=== PATIENT | male | born 1945 | race Caucasian/White ===

== ENCOUNTER 2016-12-04 09:55 | Inpatient (IN) | payer BC, MEDICARE ==
[~2016-12-04] VITALS: Ht 172.7 cm; Wt 128.3 kg
[~2016-12-04 09:55] MED LIST: NUCY150T PO; PRAV20TA2 PO
[2016-12-07] MEDS ORDERED: MULT1TAB84 PO (14:45)
[2016-12-10] MEDS ORDERED: BUPIVACAINE LIPOSOME PF 1.3% 20 ML VIAL ONE (09:35)
[2016-12-10] MEDS ORDERED: LIDOCAINE HCL 1% 30 ML VIAL NERV BLOCK ONE (09:35)
[2016-12-10] MEDS ORDERED: VANCOMYCIN HCL 1000 MG VIAL ONE (11:01)
[2016-12-10] MEDS ORDERED: SODIUM CHLOR 0.9% 250 ML INJ 250 ML ONE (11:04)
[2016-12-10 11:09] VITALS: BP 152/86; PULSE 76; RESP 19; TEMP 98.6; O2SAT 99
[2016-12-10] MEDS ORDERED: LACTATED RINGER'S 1000 ML INJ 1,000 ML ONE (11:23)
[2016-12-10] MEDS ORDERED: LACTATED RINGER'S 1000 ML INJ 1,000 ML IV ONE (12:00)
[2016-12-10] MEDS ORDERED: ONDANSETRON HCL 4 MG/2 ML VIAL IV PUSH ONE (12:00)
[2016-12-10] MEDS ORDERED: PROPOFOL 200 MG/20 ML AMP IV ONE (12:00)
[2016-12-10] MEDS ORDERED: GENTAMICIN SULFATE 80 MG/2 ML VIAL ONE (12:05)
[2016-12-10] MEDS ORDERED: fentaNYL CITRATE 250 MCG/5 ML AMP ONE (12:18)
[2016-12-10] MEDS ORDERED: MIDAZOLAM HCL 2 MG/2 ML VIAL ONE (12:18)
[2016-12-10] MEDS ORDERED: ACETAMINOPHEN 1000 MG/100 ML VIAL IV ONE (12:18)
[2016-12-10] MEDS ORDERED: SUGAMMADEX SODIUM 200 MG/2 ML VIAL IV PUSH ONE ×2 (12:19)
[2016-12-10] MEDS ORDERED: ceFAZolin 2 GM PREMIX 50 ML ONE (12:45)
[2016-12-10] MEDS ORDERED: ROPIVACAINE PERI-ARTICULAR INJECTION. P-ARTICULR SCH ×5 (13:00)
[2016-12-10] MEDS ORDERED: ZOLPIDEM TARTRATE 5 MG TAB PO PRN (15:45)
[2016-12-10] MEDS ORDERED: ACETAMINOPHEN/HYDROcodone 325 MG/10 MG TAB PO PRN (15:45)
[2016-12-10] MEDS ORDERED: ALUMINUM/MAGNESIUM/SIMETH 30 ML CUP PO PRN (15:45)
[2016-12-10] MEDS ORDERED: ONDANSETRON HCL 4 MG/2 ML VIAL IVP PRN (15:45)
[2016-12-10] MEDS ORDERED: Post-op Orders (for Pharmacy) MISC XX ONE (15:45)
[2016-12-10] MEDS ORDERED: SODIUM CHLORIDE 0.9% FLUSH 5 ML FLUSH IVF PRN (15:45)
[2016-12-10] MEDS ORDERED: *morphine SULFATE 8 MG/ML PERIprocedure ONLY ONE ×3 (15:48→16:01)
[2016-12-10] MEDS ORDERED: CPMMACHINE (15:51)
[2016-12-10] MEDS ORDERED: BEDSIDE COMMODE1 MI1 (15:51)
[2016-12-10] MEDS ORDERED: WALKER WHEELS/F1 MIS (15:51)
--- NOTE | 2016-12-10 15:53 | HHI.FF ---
Face to Face Verification Diagnosis: (1) Osteoarthritis of left knee Physical Therapy Gait training, Transfer training, bed to chair Knee: Total knee, Protocol: Left, Full weight bearing Canvas Knee Splint: Other (while sleeping at night ) Right LE Weight Bearing: WB as tolerated Left LE Weight Bearing: WB as tolerated Nursing RN: 3 days/week x 2 weeks Nursing: Dressing changes (clean incision with alcohol and apply dry sterile dressing ) Additional Instructions Pt/INR q Saturday and , call results to Lupe [phone] I have seen patient Juan Astudillo on 12/10/16. My clinical findings support the need for the requested home health care services because: High risk of falls I certify that my clinical findings support that this patient is homebound because: Post-op weakness Unsteady gait/balance Josue Cho MD Dec 10, 2016 15:53
[2016-12-10] MEDS ORDERED: *MEPERIDINE 25 MG INJ VIAL PERIprocedural Use ONLY ONE (16:06)
[2016-12-10] MEDS ORDERED: *RESP: ALBUTEROL 2.5 MG/3 ML NEB (PRN) PERIprocedural Use ONLY NEB ONE (16:13)
[2016-12-10] MEDS: LACTATED RINGER'S 1000 ML INJ 1,000 ML IV SCH (17:00)
--- NOTE | 2016-12-10 17:20 | RADRPT ---
EXAM DATE/TIME: 12/10/2016 16:55 [facility] COMPARISON: No previous studies available for comparison. INDICATIONS : Evaluate left knee arthroplasty MEDICAL HISTORY : None. SURGICAL HISTORY : Hardware placement left tibia ENCOUNTER: Initial ACUITY: 1 day PAIN SCORE: 8/10 LOCATION: Left Knee FINDINGS: The patient is post left knee arthroplasty. Orthopedic hardware appears in good position. Note is made of an old plate across a healed tibial fracture. CONCLUSION: 1. Left knee arthroplasty in good position. 2. Old plate across a healed tibial fracture. Nate Miles MD on December 10, 2016 at 17:17 Board Certified Radiologist. This report was verified electronically.
[2016-12-10 17:50] VITALS: BP 144/79; PULSE 92; RESP 18; TEMP 96.1; O2SAT 95
[2016-12-10] MEDS: MORPHINE SULFATE 8 MG/ML INJ IM PRN ×2 (18:13→21:22)
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
[2016-12-10 20:05] VITALS: BP 134/75; PULSE 93; RESP 17; TEMP 97; O2SAT 96
[2016-12-10] MEDS ORDERED: TAPENTADOL PO SCH (21:00)
[2016-12-10] MEDS: SODIUM CHLORIDE 0.9% FLUSH 5 ML FLUSH IVF SCH (21:00)
[2016-12-10] MEDS ORDERED: [UNRECOGNIZED DRUG - OTHER] PO SCH (21:00)
[2016-12-10] MEDS: PRAVASTATIN SOD 20 MG TAB PO SCH (21:24)
[2016-12-10] MEDS: ACETAMINOPHEN/HYDROcodone 325 MG/10 MG TAB PO PRN (23:58)
[2016-12-11] VITALS (13 sets, daily range): BP systolic 125–189; BP diastolic 70–88; PULSE 95–112; RESP 2–30; TEMP 99.3–103; O2SAT 91–98
[2016-12-11] MEDS: MORPHINE SULFATE 8 MG/ML INJ IM PRN ×5 (00:39→13:37)
[2016-12-11] MEDS: LACTATED RINGER'S 1000 ML INJ 1,000 ML IV SCH (04:30)
--- NOTE | 2016-12-11 07:15 | PD.ORT.PN ---
Subjective Subjective Remarks POD#1 L TKR Explained to patient and operative findings;answered multiple questions No sob,no chest pain Objective Vitals Vital Signs Date Time Temp Pulse Resp B/P Pulse Ox O2 Delivery O2 Flow Rate FiO2 12/11/16 03:27 100.0 108 20 129/82 94 12/11/16 00:05 100.1 98 18 131/71 95 12/10/16 20:05 97.0 93 17 134/75 96 12/10/16 17:50 96.1 92 18 144/79 95 12/10/16 17:00 78 18 134/73 94 Nasal Cannula 3 12/10/16 16:45 80 18 122/81 96 Nasal Cannula 4 12/10/16 16:30 86 18 122/75 96 Nasal Cannula 4 12/10/16 16:15 80 18 158/90 99 Nasal Cannula 4 12/10/16 16:00 92 18 146/86 94 Nasal Cannula 4 12/10/16 15:45 90 18 160/99 95 Nasal Cannula 4 12/10/16 15:40 97.7 100 18 159/100 93 Nasal Cannula 4 12/10/16 11:09 98.6 76 19 152/86 99 I/O 12/10/16 12/10/16 12/10/16 12/11/16 12/11/16 12/11/16 07:00 15:00 23:00 07:00 15:00 23:00 Intake Total 670 ml 240 ml Output Total 800 ml 600 ml Balance -130 ml -360 ml Intake Oral 470 ml 240 ml IV Total 50 ml Autotransfusion 150 ml Output Urine Total 500 ml 600 ml Drainage Total 150 ml Autotransfusion 150 ml # Bowel Movements 0 0 Imaging Last 24 hours Impressions Knee X-Ray 12/10/16 1542 Signed Impressions: Service Date/Time: Saturday, December 10, 2016 16:55 - CONCLUSION: 1. Left knee arthroplasty in good position. 2. Old plate across a healed tibial fracture. Nate Miles MD Objective Remarks N/V intact Neg bharti's;no calf tenderness Assessment & Plan Assessment and Plan Ortho stable Coumadin ,TEDS,Sequential hoses for DVT prophylaxsis PT,Rehab D/C home tomorrow;[facility] PT,RN Josue Cho MD Dec 11, 2016 07:15
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
[2016-12-11 08:37] LABS: HEMATOCRIT 38.1 % (39.0-51.0); REVIEW FLAG FINAL
[2016-12-11 08:45] LABS: INTERNATIONAL NORMALIZED RATIO 1.1 RATIO; PROTHROMBIN TIME - PATIENT 11.7 SEC (9.8-11.6)
[2016-12-11] MEDS: [UNRECOGNIZED DRUG - OTHER] PO SCH ×2 (09:00→21:00)
[2016-12-11] MEDS: SODIUM CHLORIDE 0.9% FLUSH 5 ML FLUSH IVF SCH ×2 (09:00→21:00)
[2016-12-11] MEDS: TAPENTADOL PO SCH ×2 (09:00→21:00)
--- NOTE | 2016-12-11 10:21 | EKG ---
Date Performed: 12/10/2016 Time Performed: 12:40:04 PTAGE: 71 years EKG: Sinus rhythm WITH FIRST DEGREE AV BLOCK RIGHT BUNDLE BRANCH BLOCK ANTERIOR MYOCARDIAL INFARCTION , OF INDETERMINA TE AGE INFERIOR MYOCARDIAL INFARCTION , OF INDETERMINATE AGE Baseline artifact ABNORMAL ECG NO PREVIOUS TRACING DOCTOR: July Egan Interpretating Date/Time 12/11/2016 10:20:41
[2016-12-11] MEDS: ACETAMINOPHEN/HYDROcodone 325 MG/10 MG TAB PO PRN (11:42)
[2016-12-11] MEDS ORDERED: NALOXONE HCL 0.4 MG/ML AMP ONE (14:45)
[2016-12-11] MEDS ORDERED: MORPHINE SULFATE 8 MG/ML INJ IM PRN (15:47)
[2016-12-11] MEDS ORDERED: WARFARIN SOD 7.5 MG TAB PO SCH (16:00)
[2016-12-11] MEDS ORDERED: WARFARIN SOD 5 MG TAB PO SCH (16:00)
--- NOTE | 2016-12-11 17:02 | RADRPT ---
EXAM DATE/TIME: 12/11/2016 16:46 [facility] COMPARISON: No previous studies available for comparison. INDICATIONS : Short of breath. MEDICAL HISTORY : None. SURGICAL HISTORY : None. ENCOUNTER: Initial ACUITY: 1 day PAIN SCORE: 0/10 LOCATION: Bilateral chest FINDINGS: The film is somewhat underpenetrated and rotated. There does appear to be perihilar parenchymal opaci ty and mild prominence of the visualized right hilum however this may be largely projectional. Cardia c size appears grossly normal for projection. No significant effusion is suspected. CONCLUSION: Limited film with no comparisons. Good quality PA and lateral views would be suggested for followup. See above. Farhad Natarajan MD on December 11, 2016 at 16:57 Board Certified Radiologist. This report was verified electronically.
--- NOTE | 2016-12-11 17:27 | HHI.PR ---
Subjective Remarks Patient was evaluated earlier today. At the time of my evaluation, a halicat was called because patient had sudden vomited while he was asleep and there was concern for aspiration. When I went to evaluate the patient, he was alert and oriented. He states that he was sleeping and woke up with vomitus around him. Nurse and at bedside state the same. states he doesn't usually vomit , and she is only significant having vomited 3 times since they have been together. Patient tells me that he feels scared about what happened. He denies any shortness of breath, any chest pain. He denies feeling nauseous prior to the episode. He again emphasizes he was asleep. Objective Vitals Vital Signs Date Time Temp Pulse Resp B/P Pulse Ox O2 Delivery O2 Flow Rate FiO2 12/11/16 16:00 101.3 102 30 189/88 92 12/11/16 12:44 96 Nasal Cannula 3.00 12/11/16 12:00 99.3 99 18 125/71 91 12/11/16 08:45 Nasal Cannula 3.00 12/11/16 08:00 99.8 95 18 126/76 92 12/11/16 03:27 100.0 108 20 129/82 94 12/11/16 00:05 100.1 98 18 131/71 95 12/10/16 20:05 97.0 93 17 134/75 96 12/10/16 17:50 96.1 92 18 144/79 95 I/O 12/10/16 12/10/16 12/10/16 12/11/16 12/11/16 12/11/16 07:00 15:00 23:00 07:00 15:00 23:00 Intake Total 670 ml 240 ml Output Total 800 ml 630 ml Balance -130 ml -390 ml Intake Oral 470 ml 240 ml IV Total 50 ml Autotransfusion 150 ml Output Urine Total 500 ml 600 ml Drainage Total 150 ml 30 ml Autotransfusion 150 ml # Bowel Movements 0 0 Result Diagram: 12/11/16 0800 Imaging Last Impressions Chest X-Ray 12/11/16 0000 Signed Impressions: Service Date/Time: Sunday, December 11, 2016 16:46 - CONCLUSION: Limited film with no comparisons. Good quality PA and lateral views would be suggested for followup. See above. Farhad Natarajan MD Knee X-Ray 12/10/16 4942 Signed Impressions: Service Date/Time: Saturday, December 10, 2016 16:55 - CONCLUSION: 1. Left knee arthroplasty in good position. 2. Old plate across a healed tibial fracture. Nate Miles MD Objective Remarks GENERAL: This is an obese, well-developed patient, in no apparent distress. SKIN: No rashes, ecchymoses or lesions. Cool and dry. surgical dressing LLE dry in intact CARDIOVASCULAR: Regular rate and rhythm without murmurs, gallops, or rubs. RESPIRATORY: Clear to auscultation. Breath sounds equal bilaterally. No wheezes , rales, or rhonchi. GASTROINTESTINAL: Abdomen soft, non-tender, nondistended. normoactive bowel sounds all four quadrants MUSCULOSKELETAL: LLE post op dressing dry and intact NEUROLOGICAL: Awake and alert. no focal deficits. NC in place. Looks a bit afraid but answers appropriately A/P Problem List: (1) Osteoarthritis of left knee ICD Code: M17.12 Status: Acute (2) Hyperlipemia ICD Code: E78.5 Status: Chronic Assessment and Plan This is a 71 year old male patient with past medical history which includes hyperlipidemia and osteoarthritis left knee. Patient is status post left total knee arthroplasty today 12/10/[address] Cho. Patient is currently in hospital bed recovering postoperatively. Halicat was called because pt vomited while asleep and there was concerns for aspiration. STAT chest x-ray was ordered. Pt on NC. satting mid 90's during my exam. Ortho was notified and has decreased pain meds which I agree with. OA L knee- s/p Left total knee arthroplasty 12/10/[address] Cho Pain management, anticoagulation, Abx and rehab per surgery hyperlipidemia- continue pravastatin f/u at 5:24pm. I was paged by RN that pt is still somnolent and sats are lower but pulse ox is being used on toes. I will order an ABG as well. Elevate head of bed and reflux precaution. continuous oxygen for now and titrate down. Pt has a BMI of 43 and could be a CO2 retainer. Based on ABG results, may need use of CPAP. Tmax this afternoon was 101. this may just be post op fever but will closely monitor especially pt is a high risk of aspiration pneumonitis. Discharge Planning per primary team Katarina Sy MD Dec 11, 2016 17:27
[2016-12-11 17:41] LABS: BLOOD GAS BASE EXCESS 4.5 mmol/L (-2-2); BLOOD GAS CARBOXYHEMOGLOBIN 2.2 % (0-4); BLOOD GAS HCO3 31 mmol/L (22-26); BLOOD GAS METHEMOGLOBIN 0.9 % (0-2); BLOOD GAS O2 HGB SATURATION 89 % (90-100); BLOOD GAS OXYGEN CONTENT 16.4 Vol % (12.0-20.0); BLOOD GAS PCO2 66 mmHg (38-42); BLOOD GAS PO2 69 mmHg (61-120); BLOOD GAS TOTAL HGB 13.2 G/DL (12.0-16.0); CRITICAL VALUE YES; TEMP CORR TO 98.6
[2016-12-11 17:42] LABS: DRAW SITE LT RADIAL; LITER FLOW 5 L/M; NUMBER OF ARTERIAL PUNCTURES 2; OXYGEN DEVICE SIMPLE MASK; STAT YES; ULNAR PULSE PRESENT
[2016-12-11] MEDS ORDERED: ACETAMINOPHEN 325 MG TAB PO PRN (17:45)
--- NOTE | 2016-12-11 18:11 | HHI.PR ---
Addendum to Inpatient Note Additional Information I went to evaluate the patient as another Halicat was called pt's on 5L simple mask, answers questions but cannot states who the president is. Per family is a bit confused. Pt is wheezing on my exam therefore I have ordered duonebs scheduled and prn. I also ordered continuous oxygen. pt hasn't vomited since last episode. ABG resulted and showed pH7.28, pCO2 66, HCO3 30.7 Pt is obese and could have some sleep apnea as well. Will order BiPAP at this time I have discussed the case w Dr. Erazo. an official consult will be placed to him. he has agreed to monitor pt overnight. A bed in [facility] was available therefore pt will be transferred there. If he worsens, he will transfer pt to ICU Katarina Sy MD Dec 11, 2016 18:11
[2016-12-11] MEDS: RESP: ALBUTEROL 2.5 MG/IPRATROPIUM 0.5 MG NEB (SCH) NEB (19:32)
[2016-12-11] MEDS: PIPERACIL-TAZO 4.5 GM PREMIX 100 ML IV SCH (20:00)
[2016-12-11] MEDS: RESP: ALBUTEROL 2.5 MG/IPRATROPIUM 0.5 MG NEB (PRN) NEB (20:17)
[2016-12-11 20:46] LABS: BLOOD GAS BASE EXCESS 3.9 mmol/L (-2-2); BLOOD GAS CARBOXYHEMOGLOBIN 1.9 % (0-4); BLOOD GAS HCO3 30 mmol/L (22-26); BLOOD GAS O2 HGB SATURATION 95 % (90-100); BLOOD GAS OXYGEN CONTENT 16.8 Vol % (12.0-20.0); BLOOD GAS PCO2 62 mmHg (38-42); BLOOD GAS PO2 115 mmHg (61-120); BLOOD GAS TOTAL HGB 12.5 G/DL (12.0-16.0); TEMP CORR TO 98.6
[2016-12-11 20:47] LABS: CRITICAL VALUE YES; DRAW SITE RT RADIAL; FIO2 100 %; LITER FLOW 15 L/M; NUMBER OF ARTERIAL PUNCTURES 1; OXYGEN DEVICE NRB; STAT YES; ULNAR PULSE PRESENT
[2016-12-11] MEDS: PRAVASTATIN SOD 20 MG TAB PO SCH (21:00)
[2016-12-11 22:11] LABS: BLOOD GAS BASE EXCESS 4.6 mmol/L (-2-2); BLOOD GAS CARBOXYHEMOGLOBIN 1.7 % (0-4); BLOOD GAS HCO3 31 mmol/L (22-26); BLOOD GAS O2 HGB SATURATION 94 % (90-100); BLOOD GAS OXYGEN CONTENT 16.4 Vol % (12.0-20.0); BLOOD GAS PCO2 65 mmHg (38-42); BLOOD GAS PO2 90 mmHg (61-120); BLOOD GAS TOTAL HGB 12.4 G/DL (12.0-16.0); TEMP CORR TO 98.6
[2016-12-11 22:12] LABS: CRITICAL VALUE YES; OXYGEN DEVICE BiPAP
[2016-12-11 22:13] LABS: DRAW SITE RT RADIAL; FIO2 80 %; NUMBER OF ARTERIAL PUNCTURES 2; STAT NO; ULNAR PULSE PRESENT
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
[2016-12-12] VITALS (14 sets, daily range): BP systolic 106–162; BP diastolic 56–72; PULSE 98–110; RESP 24–28; TEMP 97.6–99.9; O2SAT 92–100
[2016-12-12] MEDS: PIPERACIL-TAZO 4.5 GM PREMIX 100 ML IV SCH ×4 (02:00→20:20)
[2016-12-12] MEDS: RESP: ALBUTEROL 2.5 MG/IPRATROPIUM 0.5 MG NEB (PRN) NEB (03:50)
[2016-12-12 04:38] LABS: AUTOMATED NEUTROPHIL # 9.7 TH/MM3 (1.8-7.7); BASOPHIL % 0.2 % (0.0-2.0); EOSINOPHIL % 0.1 % (0.0-4.0); HEMATOCRIT 34.9 % (39.0-51.0); HEMO FLAGS DIFF FINAL; LYMPH % 8.1 % (9.0-44.0); LYMPHOCYTE # 0.9 TH/MM3 (1.0-4.8); MEAN CELL VOLUME 89.3 FL (80.0-100.0); MEAN CORPUSCULAR HEMOGLOBIN 30.2 PG (27.0-34.0); MEAN CORPUSCULAR HGB CONC 33.8 % (32.0-36.0); MONO % 5.2 % (0.0-8.0); NEUT % 86.4 % (16.0-70.0); PLATELET COUNT 197 TH/MM3 (150-450); RED BLOOD COUNT 3.91 MIL/MM3 (4.50-5.90); RED CELL DISTRIBUTION WIDTH 13.8 % (11.6-17.2); WHITE BLOOD COUNT 11.3 TH/MM3 (4.0-11.0)
[2016-12-12 05:00] LABS: INTERNATIONAL NORMALIZED RATIO 1.1 RATIO; PROTHROMBIN TIME - PATIENT 12.5 SEC (9.8-11.6)
[2016-12-12 05:13] LABS: ALT (GPT) 17 U/L (12-78); ANION GAP 5 MEQ/L (5-15); AST (GOT) 16 U/L (15-37); BICARBONATE 33.1 MEQ/L (21.0-32.0); BLOOD UREA NITROGEN 14 MG/DL (7-18); CHLORIDE 99 MEQ/L (98-107); GLOMERULAR FILTRATION RATE 69 ML/MIN (>89); MAGNESIUM 2.1 MG/DL (1.5-2.5); POTASSIUM 4.7 MEQ/L (3.5-5.1); SODIUM (NA) 137 MEQ/L (136-145)
[2016-12-12 05:15] LABS: ALKALINE PHOSPHATASE 41 U/L (45-117); TOTAL BILIRUBIN ADULT 1.3 MG/DL (0.2-1.0)
[2016-12-12] MEDS: LACTATED RINGER'S 1000 ML INJ 1,000 ML IV SCH ×2 (05:30→18:00)
[2016-12-12 05:38] LABS: BLOOD GAS CARBOXYHEMOGLOBIN 1.3 % (0-4); BLOOD GAS HCO3 31 mmol/L (22-26); BLOOD GAS METHEMOGLOBIN 1.1 % (0-2); BLOOD GAS O2 HGB SATURATION 97 % (90-100); BLOOD GAS OXYGEN CONTENT 15.4 Vol % (12.0-20.0); BLOOD GAS PCO2 61 mmHg (38-42); BLOOD GAS PO2 142 mmHg (61-120); BLOOD GAS TOTAL HGB 11.2 G/DL (12.0-16.0); TEMP CORR TO 98.6
[2016-12-12 05:39] LABS: CRITICAL VALUE YES; DRAW SITE LT RADIAL; FIO2 80 %; NUMBER OF ARTERIAL PUNCTURES 1; OXYGEN DEVICE BIPAP; STAT NO; ULNAR PULSE PRESENT; VENT SETTINGS IPAP 16/EPEP 5
--- NOTE | 2016-12-12 06:11 | RADRPT ---
EXAM DATE/TIME: 12/12/2016 05:03 [facility] COMPARISON: CHEST PA & LAT, December 11, 2016, 16:46. INDICATIONS : Shortness of breath. MEDICAL HISTORY : None. SURGICAL HISTORY : None. ENCOUNTER: Subsequent ACUITY: 1 day PAIN SCORE: Non-responsive. LOCATION: Bilateral chest FINDINGS: A single portable frontal view the chest shows a peripheral opacity involving the right hilar region. This is grossly unchanged. Left lung is clear. No effusions. Heart is normal in size. CONCLUSION: Right perihilar infiltrate. Capo Marie Jr., MD on December 12, 2016 at 6:09 Board Certified Radiologist. This report was verified electronically.
--- NOTE | 2016-12-12 08:02 | PD.ORT.PN ---
Subjective Subjective Remarks pt thirsty, has CPAP machine on post op left knee pain in room Objective Vitals Vital Signs Date Time Temp Pulse Resp B/P Pulse Ox O2 Delivery O2 Flow Rate FiO2 12/12/16 04:00 99.5 110 26 156/70 99 12/12/16 03:54 98 80 12/12/16 01:25 99 80 12/12/16 00:00 99.9 102 26 124/72 98 12/11/16 22:20 98 80 12/11/16 20:45 98 80 12/11/16 20:05 96 Non-Rebreather 15.00 100 12/11/16 20:00 100.1 110 2 139/73 96 12/11/16 20:00 93 Non-Rebreather 60 12/11/16 19:33 94 60 12/11/16 18:42 93 60 12/11/16 18:15 92 Bi-Pap 60 12/11/16 18:00 92 Simple Mask 8.00 12/11/16 18:00 103.0 112 25 126/70 92 12/11/16 16:00 101.3 102 30 189/88 92 12/11/16 16:00 90 Simple Mask 6.00 12/11/16 14:50 91 Nasal Cannula 5.00 12/11/16 12:44 96 Nasal Cannula 3.00 12/11/16 12:00 99.3 99 18 125/71 91 12/11/16 08:45 Nasal Cannula 3.00 12/11/16 08:00 99.8 95 18 126/76 92 I/O 12/11/16 12/11/16 12/11/16 12/12/16 12/12/16 12/12/16 07:00 15:00 23:00 07:00 15:00 23:00 Intake Total 240 ml 840 ml 110 ml 646 ml Output Total 630 ml 600 ml 250 ml 350 ml Balance -390 ml 240 ml -140 ml 296 ml Intake Oral 240 ml 840 ml 0 ml 0 ml IV Total 110 ml 646 ml Output Urine Total 600 ml 600 ml 250 ml 350 ml Stool Total 0 ml 0 ml Drainage Total 30 ml # Bowel Movements 0 0 Result Diagram: 12/12/16 0415 12/12/16 0415 Other Results Laboratory Tests Test 12/11/16 12/12/16 08:00 04:15 Prothrombin Time 11.7 SEC 12.5 SEC (9.8-11.6) (9.8-11.6) Prothromb Time International 1.1 RATIO 1.1 RATIO Ratio Imaging Last 24 hours Impressions Knee X-Ray 12/10/16 1542 Signed Impressions: Service Date/Time: Saturday, December 10, 2016 16:55 - CONCLUSION: 1. Left knee arthroplasty in good position. 2. Old plate across a healed tibial fracture. Nate Miles MD Objective Remarks seen by Dr. Josue Cho patient in bed with CPAP machine on left knee dressings dry and intact N/V intact Neg bharti's;no calf tenderness Assessment & Plan Assessment and Plan discussion with nurse discussion with continue pulm care, stat CTA was ordered last night but has not been performed coumadin dvt prop for TKA PT-WBAT and CPM hold discharge until medically stable Lupe Galdamez Dec 12, 2016 08:02
[2016-12-12] MEDS: RESP: ALBUTEROL 2.5 MG/IPRATROPIUM 0.5 MG NEB (SCH) NEB ×3 (08:57→19:24)
[2016-12-12] MEDS: TAPENTADOL PO SCH ×2 (11:11→20:20)
[2016-12-12] MEDS: [UNRECOGNIZED DRUG - OTHER] PO SCH ×2 (11:11→20:20)
--- NOTE | 2016-12-12 11:14 | HHI.CCPN ---
Subjective Remarks/Hospital Course Hypoxemic respiratory failure requiring BiPAP last night. By ABG patient is chronic hypoventilator with CO2 retention. Still need to rule out pulmonary embolus with CTA. Will try to arrange pulmonary service followup after discharge; for home CPAP. Objective Vital Signs Date Time Temp Pulse Resp B/P Pulse Ox O2 Delivery O2 Flow Rate FiO2 12/12/16 08:34 99.4 98 28 158/65 100 12/12/16 03:54 80 12/11/16 20:05 Non-Rebreather 15.00 Intake and Output 12/11/16 12/11/16 12/12/16 08:00 16:00 00:00 Intake Total 240 ml 840 ml 110 ml Output Total 630 ml 600 ml 250 ml Balance -390 ml 240 ml -140 ml Result Diagram: 12/12/16 0415 12/12/16 0415 Other Results Laboratory Tests Test 12/11/16 12/11/16 12/11/16 12/12/16 17:35 20:31 21:55 05:25 Blood Gas Puncture Site LT RADIAL RT RADIAL RT RADIAL LT RADIAL Blood Gas Patient Temperature 98.6 98.6 98.6 98.6 Blood Gas HCO3 31 mmol/L 30 mmol/L 31 mmol/L 31 mmol/L (22-26) (22-26) (22-26) (22-26) Blood Gas Base Excess 4.5 mmol/L 3.9 mmol/L 4.6 mmol/L 5.0 mmol/L (-2-2) (-2-2) (-2-2) (-2-2) Blood Gas Oxygen Saturation 89 % (90-100) 95 % (90-100) 94 % (90-100) 97 % (90- 100) Arterial Blood pH 7.29 7.30 7.30 7.33 (7.380-7.420) (7.380-7.420) (7.380-7.420) (7.380-7.420) Arterial Blood Partial 66 mmHg (38-42) 62 mmHg (38-42) 65 mmHg (38-42) 61 mmHg ( 38-42) Pressure CO2 Arterial Blood Partial 69 mmHg 115 mmHg 90 mmHg 142 mmHg Pressure O2 (61-120) (61-120) (61-120) (61-120) Arterial Blood Oxygen Content 16.4 Vol % 16.8 Vol % 16.4 Vol % 15.4 Vol % (12.0-20.0) (12.0-20.0) (12.0-20.0) (12.0-20.0) Arterial Blood 2.2 % (0-4) 1.9 % (0-4) 1.7 % (0-4) 1.3 % (0-4) Carboxyhemoglobin Arterial Blood Methemoglobin 0.9 % (0-2) 1.0 % (0-2) 1.0 % (0-2) 1.1 % (0-2) Blood Gas Hemoglobin 13.2 G/DL 12.5 G/DL 12.4 G/DL 11.2 G/DL (12.0-16.0) (12.0-16.0) (12.0-16.0) (12.0-16.0) Oxygen Delivery Device SIMPLE MASK NRB BiPAP BIPAP Blood Gas Liter Flow 5 L/M 15 L/M Blood Gas Inspired Oxygen 100 % 80 % 80 % Blood Gas Ventilator Setting IPAP 16/EPEP 5 Imaging Last 24 hours Impressions Chest X-Ray 12/11/16 0000 Signed Impressions: Service Date/Time: Sunday, December 11, 2016 16:46 - CONCLUSION: Limited film with no comparisons. Good quality PA and lateral views would be suggested for followup. See above. Farhad Natarajan MD Objective Remarks GENERAL: Morbidly obese gentleman. SKIN: Warm and dry. HEAD: Normocephalic. NECK: Supple, trachea midline.Airway widely patent. CARDIOVASCULAR: Regular rate and rhythm without murmurs, gallops, or rubs. No JVD. RESPIRATORY: Breath sounds equal bilaterally. Diminished at bases. No wheezes. GASTROINTESTINAL: Abdomen soft, non-tender, nondistended. BS active. MUSCULOSKELETAL: No cyanosis, or edema. Well perfused. EXTREMITIES: Well-healing component after knee replacement on the left without signs of infection or inflammation NEURO: O X 3, alert, conversant. Moves 4 limbs spontaneously. A/P Assessment and Plan Respiratory failure - Untreated DEMETRICE/OHS - Continue BiPAP - Possible aspiration pneumonia/pneumonitis - Empirically Zosyn - CTA chest Osteoarthritis of the left knee - Status post total knee arthroplasty - Management per orthopedic surgeon Dyslipidemia - By mouth statin DVT GI prophylaxis - Coumadin/regular diet Overall impression: He developed respiratory failure last night requiring NIV and PO2 remains marginal absent small RLL infiltrate. He has improved overnight and will get CTA to rule out pulmonary embolism. He will require Pulmonology outpatient followup. Willi Jauregui MD Dec 12, 2016 11:14
[2016-12-12] MEDS ORDERED: IOHEXOL 350 MG/ML 10 ML VIAL (for RAD DIAG) IV ONE (12:23)
--- NOTE | 2016-12-12 12:59 | RADRPT ---
EXAM DATE/TIME: 12/12/2016 11:56 [facility] COMPARISON: CT THORAX W CONTRAST, July 30, 2016, 19:21. CT KNEE LEFT W/O CONTRAST, July 31, 2016, 10:50. INDICATIONS : Hypoxia IV CONTRAST: 75 cc Omnipaque 350 (iohexol) IV RADIATION DOSE: 23.40 CTDIvol (mGy) MEDICAL HISTORY : None SURGICAL HISTORY : Tonsillectomy. ENCOUNTER: Initial ACUITY: 1 day PAIN SCALE: 0/10 LOCATION: chest TECHNIQUE: Volumetric scanning of the chest was performed using a pulmonary embolism protocol MIP images were re constructed. Using automated exposure control and adjustment of the mA and/or kV according to patien t size, radiation dose was kept as low as reasonably achievable to obtain optimal diagnostic quality images. FINDINGS: The examination is of moderate diagnostic quality. No large or central pulmonary embolus is identifie d. The heart is mildly enlarged. There is no pericardial effusion. There is atherosclerotic plaquing in the coronary arteries. No significant hilar or mediastinal adenopathy is present. The pulmonary parenchyma demonstrates areas of diffuse parenchymal infiltrate in both lower lobes. Th is is new when compared to previous date 07/30/16. This would be concerning for pneumonia. CONCLUSION: 1. No pulmonary embolus identified. 2. Fairly diffuse perihilar and lower lobe infiltrates concerning for a pneumonia. 3. Mild cardiomegaly. Nate Miles MD on December 12, 2016 at 12:56 Board Certified Radiologist. This report was verified electronically.
--- NOTE | 2016-12-12 15:45 | MP ---
cc: TANIA CARMONA MD, ALBERT W. M.D. DATE OF SURGERY: 12/10/2016 PREOPERATIVE DIAGNOSIS Left knee severe tricompartmental osteoarthritis, healed lateral tibial plateau fracture, severe genu varus deformity. POSTOPERATIVE DIAGNOSIS Left knee severe tricompartmental osteoarthritis, healed lateral tibial plateau fracture, severe genu varus deformity. PROCEDURE Left total knee arthroplasty - cemented Biomet Vanguard. SURGEON Geo Cho MD WATERWORKS PUMP STATION OPERATOR Lupe Galdamez PA-C SPECIMEN None. ESTIMATED BLOOD LOSS Less than 50 cc. COMPLICATIONS None. ANESTHESIA General, adductor canal block. DRAINS Two. TOURNIQUET TIME 82 minutes at 275 mmHg. CONDITION Stable. PLAN OF ACTIVITY Per orders. DETAILS OF PROCEDURE My assistant golf coach Lupe Galdamez PA-C was present for the entire surgical case. She was medically necessary for the entire case because of the complexity of the case and to facilitate the performance of the procedure. The WAX CUTTER at the back table did not have the skill set for this case to manipulate the instruments, e.g., the multiple different types of soft tissue retractors, trial implants and permanent implants. The patient was brought into the operating room, had satisfactory adductor canal block followed by general anesthesia by the Department of Anesthesia. The left lower extremity was prepped and draped in the usual sterile manner. The extremity was exsanguinated by elevation and tourniquet inflated to 275 mmHg. Anteromedial exposure to the knee was made. A paramedian capsulotomy was performed. The patient was found to have severe tricompartmental osteoarthritis involving all three compartments of the knee. There was also some stiffness involving the knee and a healed lateral tibial plateau fracture. The patient additionally had a midshaft tibial fracture which was treated with open treatment and internal fixation with plate and screws in 1974 in [place]. The remaining portions of the medial and lateral meniscus were removed. The anterior cruciate ligament was found not to be intact. The prepatellar fat pad was surgically excised. Using the Biomet Vanguard total knee arthroplasty system the IM guide was used for the distal femur. This was to accept a 70 mm tibial component. An extramedullary guide was used for the distal femur. This was to accept a 79 mm tibial component. The patient was found to have good balance of the knee in both flexion and extension. Trial reduction was made with a 10 mm insert and it was found to be satisfactory. The undersurface of the patella was removed to accept a 31 mm three-pronged patellar prosthesis. All trial components were removed and preparation for cementing was made. Two packages of high viscosity bone cement was used. First the tibial component was cemented which was a 79 tibial component followed by the femoral component which was a 70 mm left femoral component and a 31 mm patellar prosthesis. All excess bone cement was removed. The cement was allowed to harden for 13 minutes. A 10 x 79 mm tibial insert was then assembled onto the tray with the appropriate clipping mechanism. The knee was then irrigated with copious amounts of sterile saline antibiotic solution, 4000 cc to be specific. The knee was injected with local anesthesia provided by the Department of Pharmacy. The tourniquet was deflated. All bleeders were coagulated. The wound itself was dry. Two Hemovac drains were hooked up to an Autovac system. The patient's wound was closed in the routine manner. The capsule and extensor mechanism were closed with #2 Tycron suture, the subcutaneous layer with 0 Vicryl and 2-0 Vicryl. The skin was approximated with skin zakia. The patient tolerated the procedure well and arrived in the recovery room in stable and satisfactory condition. MD EMILY Greenberg/RANDAL /3:37 PM /3:18 PM
[2016-12-12] MEDS ORDERED: WARFARIN SOD 5 MG TAB PO SCH (16:00)
[2016-12-12] MEDS: WARFARIN SOD 7.5 MG TAB PO ONE ×2 (16:39→20:19)
[2016-12-12 18:48] LABS: BLOOD GAS BASE EXCESS 5.8 mmol/L (-2-2); BLOOD GAS CARBOXYHEMOGLOBIN 1.1 % (0-4); BLOOD GAS HCO3 34 mmol/L (22-26); BLOOD GAS METHEMOGLOBIN 0.9 % (0-2); BLOOD GAS O2 HGB SATURATION 90 % (90-100); BLOOD GAS OXYGEN CONTENT 14.6 Vol % (12.0-20.0); BLOOD GAS PCO2 95 mmHg (38-42); BLOOD GAS PO2 72 mmHg (61-120); BLOOD GAS TOTAL HGB 11.6 G/DL (12.0-16.0); CRITICAL VALUE YES; DRAW SITE RT RADIAL; LITER FLOW 13 L/M; NUMBER OF ARTERIAL PUNCTURES 1; OXYGEN DEVICE PARTIAL REBREATHER; STAT YES; TEMP CORR TO 98.6
[2016-12-12 20:08] LABS: BLOOD GAS CARBOXYHEMOGLOBIN 1.4 % (0-4); BLOOD GAS HCO3 33 mmol/L (22-26); BLOOD GAS METHEMOGLOBIN 0.9 % (0-2); BLOOD GAS O2 HGB SATURATION 91 % (90-100); BLOOD GAS OXYGEN CONTENT 13.9 Vol % (12.0-20.0); BLOOD GAS PCO2 72 mmHg (38-42); BLOOD GAS PO2 70 mmHg (61-120); BLOOD GAS TOTAL HGB 10.8 G/DL (12.0-16.0); OXYGEN DEVICE N; TEMP CORR TO 98.6
[2016-12-12 20:09] LABS: CRITICAL VALUE YES; DRAW SITE RT RADIAL; FIO2 65 %; NUMBER OF ARTERIAL PUNCTURES 1; STAT NO; ULNAR PULSE PRESENT; VENT SETTINGS 20IPAP/10EPAP
[2016-12-12] MEDS: PRAVASTATIN SOD 20 MG TAB PO SCH (20:20)
[2016-12-12] MEDS: SODIUM CHLORIDE 0.9% FLUSH 5 ML FLUSH IVF SCH (20:21)
[2016-12-13] VITALS (18 sets, daily range): BP systolic 121–141; BP diastolic 62–88; PULSE 9–108; RESP 15–35; TEMP 97.7–99.9; O2SAT 91–98
[2016-12-13] MEDS: PIPERACIL-TAZO 4.5 GM PREMIX 100 ML IV SCH ×4 (02:20→19:41)
[2016-12-13 04:25] LABS: INTERNATIONAL NORMALIZED RATIO 1.1 RATIO; PROTHROMBIN TIME - PATIENT 11.7 SEC (9.8-11.6)
--- NOTE | 2016-12-13 05:32 | MB ---
cc: JEIMY ARNOLD MD DATE OF CONSULTATION 12/12/[address] Eliazar Jauregui REASON FOR CONSULT Pulmonary management. HISTORY OF PRESENT ILLNESS Mr. Astudillo is a 71-year-old morbidly obese male with history of hypertension, osteoarthritis. He underwent a left knee replacement earlier. The patient was noted to be hypoxic and hypercapnic. He was very lethargic. He had a blood gas done which shows pH of 7.18, pCO2 95, pO2 72. He was put on BiPap. Repeat blood gas pH 7.28, pCO2 72, PO2 70. He is becoming more arousable. His at the bedside states that normally he sleeps well. He goes to sleep around 11 o'clock and wakes up around 8 o'clock in the morning. He is usually well rested, no excessive sleepiness. He does snore particularly when he lies on his back. No known COPD, asthma, emphysema or obstructive sleep apnea. PAST MEDICAL HISTORY 1. Hypertension. 2. Osteoarthritis. 3. Left leg surgery. 4. Shoulder surgery. MEDICATIONS He is currently taking - 1. Coumadin. 2. Albuterol/Atrovent nebulizer treatment. 3. Zosyn IV. 4. Morphine for pain. ALLERGIES No known drug allergies. SOCIAL HISTORY He is for 30 years. He has history of smoking off and on. No alcohol use. 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 FAMILY HISTORY He and his have a total of five children. REVIEW OF SYSTEMS Normally he is up around and active. No malignancy. No DVT or pulmonary embolism. No seizure, stroke or epilepsy. PHYSICAL EXAMINATION GENERAL: A well-nourished male who is somewhat lethargic, on BiPAP. VITAL SIGNS: Blood pressure 139/72, heart rate 100, respirations 24. Temperature 98.8. HEENT EXAMINATION: Pupils are equal and react to light. NECK: Supple. JVP not raised. CHEST: Equal bilateral chest excursion. No rhonchi. CV: S1 and S2 normal. ABDOMEN: Benign. EXTREMITIES: No edema. IMPRESSION 1. Hypercapnic respiratory failure, possible underlying obstructive sleep apnea or undiagnosed COPD. Also obesity hypoventilation syndrome is a possibility. 2. Hypertension. 3. Status post knee surgery. 4. Obesity. 5. Lung infiltrate. PLAN 1. We will continue with his antibiotic. 2. Continue BiPAP. 3. Titrate oxygen to keep the saturation greater than 90%. 4. First we will wean him from the oxygen and as he tolerates, once he gets better we will check his pulmonary function study and scheduled him for sleep study as an outpatient. 5. Further treatment will depend on his course in the hospital. Thank you Dr. Jauergui for this consultation. MD EM Soria/JOO /9:15 PM /5:05 AM
[2016-12-13] MEDS: LACTATED RINGER'S 1000 ML INJ 1,000 ML IV SCH ×2 (05:47→17:03)
[2016-12-13] MEDS: RESP: ALBUTEROL 2.5 MG/IPRATROPIUM 0.5 MG NEB (SCH) NEB ×3 (07:28→19:56)
--- NOTE | 2016-12-13 07:30 | HHI.CCPN ---
Subjective Remarks/Hospital Course Hypoxemic respiratory failure requiring BiPAP last night. By ABG patient is chronic hypoventilator with CO2 retention. Still need to rule out pulmonary embolus with CTA. Will try to arrange pulmonary service followup after discharge; for home CPAP. 12/13: Appreciate input from Dr. Gordillo. His chronic pulmonary issues will take some more in-hospital fine tuning. Orthopedic Service can feel free to transfer this patient to the [facility] - we'd be happy to manage his medical care. INR has not increased yet - should we start lovenox until the INR is therapeutic? Objective Vital Signs Date Time Temp Pulse Resp B/P Pulse Ox O2 Delivery O2 Flow Rate FiO2 12/13/16 06:00 89 12/13/16 04:20 96 50 12/13/16 04:00 99.0 24 121/62 12/12/16 20:51 Bi-Pap 12/11/16 20:05 15.00 Intake and Output 12/12/16 12/12/16 12/13/16 08:00 16:00 00:00 Intake Total 646 ml 828 ml Output Total 350 ml 1000 ml Balance 296 ml -172 ml Result Diagram: 12/12/16 0415 12/12/16 0415 Other Results Laboratory Tests Test 12/12/16 12/12/16 18:15 20:00 Blood Gas Puncture Site RT RADIAL RT RADIAL Blood Gas Patient Temperature 98.6 98.6 Blood Gas HCO3 34 mmol/L 33 mmol/L (22-26) (22-26) Blood Gas Base Excess 5.8 mmol/L 6.0 mmol/L (-2-2) (-2-2) Blood Gas Oxygen Saturation 90 % (90-100) 91 % (90-100) Arterial Blood pH 7.18 7.28 (7.380-7.420) (7.380-7.420) Arterial Blood Partial 95 mmHg (38-42) 72 mmHg (38-42) Pressure CO2 Arterial Blood Partial 72 mmHg 70 mmHg Pressure O2 (61-120) (61-120) Arterial Blood Oxygen Content 14.6 Vol % 13.9 Vol % (12.0-20.0) (12.0-20.0) Arterial Blood 1.1 % (0-4) 1.4 % (0-4) Carboxyhemoglobin Arterial Blood Methemoglobin 0.9 % (0-2) 0.9 % (0-2) Blood Gas Hemoglobin 11.6 G/DL 10.8 G/DL (12.0-16.0) (12.0-16.0) Oxygen Delivery Device PARTIAL N REBREATHER Blood Gas Liter Flow 13 L/M Blood Gas Ventilator Setting 20IPAP/10EPAP Blood Gas Inspired Oxygen 65 % Imaging Last 24 hours Impressions Chest X-Ray 12/11/16 0000 Signed Impressions: Service Date/Time: Sunday, December 11, 2016 16:46 - CONCLUSION: Limited film with no comparisons. Good quality PA and lateral views would be suggested for followup. See above. Farhad Natarajan MD Objective Remarks GENERAL: Morbidly obese gentleman. SKIN: Warm and dry. HEAD: Normocephalic. NECK: Supple, trachea midline.Airway widely patent. CARDIOVASCULAR: Regular rate and rhythm without murmurs, gallops, or rubs. No JVD. RESPIRATORY: Breath sounds equal bilaterally. Diminished at bases. No wheezes or crackles. GASTROINTESTINAL: Abdomen soft, non-tender, nondistended. BS active. MUSCULOSKELETAL: No cyanosis, or edema. Well perfused. EXTREMITIES: Well-healing after knee replacement on the left without signs of infection or inflammation NEURO: O X 3, alert, conversant. Moves 4 limbs spontaneously. A/P Assessment and Plan Respiratory failure - Untreated DEMETRICE/OHS - Continue BiPAP - Possible aspiration pneumonia/pneumonitis - Empirically Zosyn - CTA chest -> no PE but considerable basilar consolidation, doubt pneumonitis but agree with antibiotics because of his underlying lung pathology. Osteoarthritis of the left knee - Status post total knee arthroplasty - Management per orthopedic surgeon - Lovenox until INR rises? Dyslipidemia - By mouth statin DVT GI prophylaxis - Coumadin/regular diet Overall impression: He has developed hypercapneic respiratory failure requiring NIV and PO2 remains marginal. He has improved and will get CTA ruled out pulmonary embolism. His OHS will be a life-long problem I predict. He will require Pulmonology outpatient followup. Willi Jauregui MD Dec 13, 2016 07:30
[2016-12-13] MEDS: TAPENTADOL PO SCH ×2 (08:21→19:41)
[2016-12-13] MEDS: [UNRECOGNIZED DRUG - OTHER] PO SCH ×2 (08:21→19:41)
[2016-12-13] MEDS: SODIUM CHLORIDE 0.9% FLUSH 5 ML FLUSH IVF SCH ×2 (08:21→19:42)
[2016-12-13 08:59] LABS: BICARBONATE 36.3 MEQ/L (21.0-32.0)
--- NOTE | 2016-12-13 11:33 | PD.ORT.PN ---
Subjective Subjective Remarks patient sitting up in chair nurse and in room more comfortable today Objective Vitals Vital Signs Date Time Temp Pulse Resp B/P Pulse Ox O2 Delivery O2 Flow Rate FiO2 12/13/16 08:00 99.5 97 30 141/67 94 12/13/16 08:00 94 Bi-Pap 50 12/13/16 08:00 9 12/13/16 07:28 96 50 12/13/16 06:00 89 12/13/16 04:20 96 50 12/13/16 04:00 99.0 93 24 121/62 94 12/13/16 04:00 93 12/13/16 02:00 101 12/13/16 01:10 91 50 12/13/16 00:00 99.9 96 23 140/70 93 12/13/16 00:00 96 12/12/16 23:10 92 50 12/12/16 22:06 92 45 12/12/16 22:00 103 12/12/16 20:51 95 Bi-Pap 50 12/12/16 20:35 94 50 12/12/16 20:00 106 12/12/16 20:00 94 Bi-Pap 65 12/12/16 20:00 98.8 104 24 139/72 94 12/12/16 19:24 96 65 12/12/16 18:17 99 80 12/12/16 16:00 97.6 106 24 162/70 92 12/12/16 12:00 99.0 98 24 106/56 100 I/O 12/12/16 12/12/16 12/12/16 12/13/16 12/13/16 12/13/16 07:00 15:00 23:00 07:00 15:00 23:00 Intake Total 646 ml 828 ml 462 ml Output Total 350 ml 1000 ml Balance 296 ml -172 ml 462 ml Intake Oral 0 ml 360 ml IV Total 646 ml 468 ml 462 ml Output Urine Total 350 ml 1000 ml Stool Total 0 ml # Voids 2 2 Result Diagram: 12/12/16 0415 12/13/16 0753 Other Results Laboratory Tests Test 12/13/16 03:39 Prothrombin Time 11.7 SEC (9.8-11.6) Prothromb Time International 1.1 RATIO Ratio Imaging Last 24 hours Impressions Knee X-Ray 12/10/16 7562 Signed Impressions: Service Date/Time: Saturday, December 10, 2016 16:55 - CONCLUSION: 1. Left knee arthroplasty in good position. 2. Old plate across a healed tibial fracture. Nate Miles MD Objective Remarks seen by Dr. Josue Cho patient sitting up in a chair with bipap left knee dressing dry and intact N/V intact Neg bharti's;no calf tenderness Assessment & Plan Assessment and Plan spoke with Dr. Jauregui, we will see patient tomorrow but are transferring care to [facility] coumadin 10 mg today, goal INR 1.5-1.8 for dvt prop for tka continue pulm care PT-WBAT and CPM hold discharge until medically stable- most likely will go to SNF next week case management consult for SNF placement Nucynta ER 150 mg pain rx in chart (patient was on this pre-operatively) Lupe Galdamez Dec 13, 2016 11:33
[2016-12-13] MEDS ORDERED: WARFARIN SOD 5 MG TAB PO SCH (16:00)
[2016-12-13] MEDS ORDERED: WARFARIN SOD 10 MG TAB PO ONE (16:00)
--- NOTE | 2016-12-13 16:56 | EC ---
Study Study Date:12/13/2016 STUDY CONCLUSIONS SUMMARY - Left ventricle: The cavity size was normal. Wall thickness was normal. Systolic function was probably normal. The estimated ejection fraction was 50%. Wall motion was normal; there were no regional wall motion abnormalities. - Aortic valve: Valve area: 2.09cm^2 (Vmax). - Tricuspid valve: Mild regurgitation. If LV function is below 40, please consider prescribing an ACEI or ARB or document rationale for non-use. PROCEDURE DATA STUDY STATUS: Elective. Procedure: Transthoracic echocardiography. Image quality was good. Scanning was performed from the parasternal, apical, and subcostal acoustic windows. Study completion: The patient tolerated the procedure well. Transthoracic echocardiography. M-mode, complete 2D, complete spectral Doppler, and color Doppler. Height: Height: 68in. Weight: Weight: 291.4lb. Body mass index: BMI: 44.4kg/m^2. Body surface area: BSA: 2.4m^2. Patient status: Inpatient. CARDIAC ANATOMY LEFT VENTRICLE: Not well visualized. The cavity size was normal. Wall thickness was normal. Systolic function was probably normal. The estimated ejection fraction was 50%. Wall motion was normal; there were no regional wall motion abnormalities. AORTIC VALVE: Trileaflet; normal thickness leaflets. Doppler: Transvalvular velocity was within the normal range. There was no stenosis. No regurgitation. Valve area: 2.09cm^2 (Vmax). Indexed valve area: 0.87cm^2/m^2 (Vmax). Peak gradient: 11mm Hg (S). AORTA: Aortic root: The aortic root was normal in size. MITRAL VALVE: Structurally normal valve. Doppler: Transvalvular velocity was within the normal range. There was no evidence for stenosis. No regurgitation. Peak gradient: 4mm Hg (D). LEFT ATRIUM: The atrium was normal in size. RIGHT VENTRICLE: The cavity size was normal. Wall thickness was normal. PULMONIC VALVE: Doppler: Transvalvular velocity was within the normal range. There was no evidence for stenosis. No regurgitation. TRICUSPID VALVE: Structurally normal valve. Doppler: Transvalvular velocity was within the normal range. Mild regurgitation. PULMONARY ARTERY: The main pulmonary artery was normal-sized. Systolic pressure was within the normal range. RIGHT ATRIUM: The atrium was normal in size. PERICARDIUM: There was no pericardial effusion. SYSTEMIC VEINS: Inferior vena cava: The vessel was normal in size. Patient weight: 291.4lb _Ejection fraction:_ 65-75% _Fractional shortening:_ 32% up to 5Kg 5-11.5Kg 11.6-22.9Kg 23-45Kg 45-57Kg Aortic Root 7-13 <17 13-22 17-27 17-27 LA diam 6-13 <23 24-38 33-47 37-40 RVID 10-17 7-15 7-15 7-18 8-17 LVIDd 12-22 <32 24-38 33-47 37-40 LVPW 2-4 3-6 5-7 6-8 7-8 IVS 2-4 3-6 5-7 6-8 7-8 BASIC MEASUREMENTS ADULT NORMAL Left ventricle LV internal dimension, ED, chordal *39.4 mm 43-52 level, PLAX LV internal dimension, ES, chordal 32.8 mm 23-38 level, PLAX Fractional shortening, chordal level, *17 % >29 PLAX LV posterior wall thickness, ED 11.7 mm IVS/LVPW ratio, ED 1.03 <1.3 Ventricular septum Septal thickness, ED 12.1 mm Aortic valve Leaflet separation 16 mm 15-26 BASIC MEASUREMENTS ADULT NORMAL Aortic valve Leaflet separation 16 mm 15-26 Aorta Root diameter, ED 22 mm 20-37 Left atrium Anterior-posterior dimension, ES 26 mm 19-40 Anterior-posterior dimension index, ES 1.08 cm/m^2 <2.2 LA/aortic root ratio 1.18 DOPPLER MEASUREMENTS ADULT NORMAL Main pulmonary artery Pressure, S 25 mm Hg =30 Aortic valve Peak velocity, S 167 cm/s Peak gradient, S 11 mm Hg Valve area, Vmax 2.09 cm^2 Valve area index, Vmax 0.87 cm^2/m^2 Mitral valve Peak E-wave velocity 95.3 cm/s Peak A-wave velocity 108 cm/s Deceleration time *236 ms 150-230 Peak gradient, D 4 mm Hg Peak E/A ratio 0.9 Tricuspid valve Regurgitant peak velocity 235 cm/s Peak RV-RA gradient, S 22 mm Hg Maximal regurgitant velocity 235 cm/s Systemic veins Estimated CVP 10 mm Hg Right ventricle RV pressure, S *32 mm Hg <30 Pulmonic valve Peak velocity, S 136 cm/s LEGEND: Mean values are shown as u=mean value. Asterisk (*) chahal values outside specified normal range. Prepared and signed by Julio Cesar Aldrich [id number]
[2016-12-13] MEDS: LACTULOSE SYRUP 20 GM/30 ML CUP PO SCH (18:10)
[2016-12-13] MEDS: PRAVASTATIN SOD 20 MG TAB PO SCH (19:40)
[2016-12-13] MEDS: DOCUSATE SODIUM 100 MG CAP PO SCH (19:40)
--- NOTE | 2016-12-13 20:59 | HHI.PR ---
Subjective Remarks 71 YOWM with Hypercapnoic RF, s/p Knee surgery Was on VM Now using BIPAP Alert, awake Feels better Objective Vital Signs Vital Signs Date Time Temp Pulse Resp B/P Pulse Ox O2 Delivery O2 Flow Rate FiO2 12/13/16 20:00 96 Bi-Pap 40 12/13/16 20:00 108 12/13/16 20:00 98.7 108 35 134/81 96 12/13/16 19:00 94 Venturi Mask 50 12/13/16 18:00 106 12/13/16 16:00 105 12/13/16 16:00 98.2 105 29 131/76 92 12/13/16 14:00 100 12/13/16 12:00 85 12/13/16 12:00 97.7 85 15 140/88 97 12/13/16 10:00 96 12/13/16 08:00 99.5 97 30 141/67 94 12/13/16 08:00 94 Bi-Pap 50 12/13/16 08:00 9 12/13/16 07:28 96 50 12/13/16 06:00 89 12/13/16 04:20 96 50 12/13/16 04:00 99.0 93 24 121/62 94 12/13/16 04:00 93 12/13/16 02:00 101 12/13/16 01:10 91 50 12/13/16 00:00 99.9 96 23 140/70 93 12/13/16 00:00 96 12/12/16 23:10 92 50 12/12/16 22:06 92 45 12/12/16 22:00 103 I/O 12/12/16 12/12/16 12/12/16 12/13/16 12/13/16 12/13/16 07:00 15:00 23:00 07:00 15:00 23:00 Intake Total 646 ml 828 ml 462 ml 1278 ml Output Total 350 ml 1000 ml 550 ml Balance 296 ml -172 ml 462 ml 728 ml Intake Oral 0 ml 360 ml 860 ml IV Total 646 ml 468 ml 462 ml 418 ml Output Urine Total 350 ml 1000 ml 550 ml Stool Total 0 ml # Voids 2 2 3 # Bowel Movements 0 Result Diagram: 12/12/16 0415 12/13/16 0753 Objective Remarks GENERAL: WBWN WM, SKIN: Warm and dry. HEAD: Normocephalic. EYES: No scleral icterus. No injection or drainage. NECK: Supple, trachea midline. No JVD or lymphadenopathy. CARDIOVASCULAR: Regular rate and rhythm without murmurs, gallops, or rubs. RESPIRATORY: Breath sounds equal bilaterally. No accessory muscle use. GASTROINTESTINAL: Abdomen soft, non-tender, nondistended. MUSCULOSKELETAL: No cyanosis, or edema. BACK: Nontender without obvious deformity. No CVA tenderness. A/P Assessment and Plan Hypercapnoic RF Obesity hyponetilation or DEMETRICE HTN S/P Knee surgery Lung Infilterate PLAN: BIPAP at night Keep sat 88-92 % Cont Abx Will need sleep study as out pt Lawrence Gordillo MD Dec 13, 2016 20:59
[2016-12-14] VITALS (16 sets, daily range): BP systolic 128–157; BP diastolic 66–79; PULSE 80–102; RESP 17–30; TEMP 97.9–98.9; O2SAT 89–99
[2016-12-14] MEDS: PIPERACIL-TAZO 4.5 GM PREMIX 100 ML IV SCH ×4 (01:08→21:22)
[2016-12-14 04:28] LABS: INTERNATIONAL NORMALIZED RATIO 1.1 RATIO; PROTHROMBIN TIME - PATIENT 11.7 SEC (9.8-11.6)
[2016-12-14 04:44] LABS: BICARBONATE 31.5 MEQ/L (21.0-32.0); POTASSIUM 3.7 MEQ/L (3.5-5.1)
--- NOTE | 2016-12-14 07:18 | PD.ORT.PN ---
Subjective Subjective Remarks patient resting in bed nurse in room more comfortable today Objective Vitals Vital Signs Date Time Temp Pulse Resp B/P Pulse Ox O2 Delivery O2 Flow Rate FiO2 12/14/16 06:00 80 12/14/16 04:17 95 40 12/14/16 04:00 93 12/14/16 04:00 98.9 93 30 130/73 93 12/14/16 02:00 95 12/14/16 00:00 98.7 96 17 157/72 93 12/14/16 00:00 96 12/13/16 22:13 94 40 12/13/16 22:00 90 12/13/16 20:08 98 40 12/13/16 20:00 96 Bi-Pap 40 12/13/16 20:00 108 12/13/16 20:00 98.7 108 35 134/81 96 12/13/16 19:56 92 Venturi Mask 6.00 50 12/13/16 19:00 94 Venturi Mask 50 12/13/16 18:00 106 12/13/16 16:00 105 12/13/16 16:00 98.2 105 29 131/76 92 12/13/16 14:00 100 12/13/16 12:00 85 12/13/16 12:00 97.7 85 15 140/88 97 12/13/16 10:00 96 12/13/16 08:00 99.5 97 30 141/67 94 12/13/16 08:00 94 Bi-Pap 50 12/13/16 08:00 9 12/13/16 07:28 96 50 I/O 12/13/16 12/13/16 12/13/16 12/14/16 12/14/16 12/14/16 07:00 15:00 23:00 07:00 15:00 23:00 Intake Total 462 ml 1278 ml 810 ml 715 ml Output Total 550 ml 500 ml 425 ml Balance 462 ml 728 ml 310 ml 290 ml Intake Oral 860 ml 240 ml 240 ml IV Total 462 ml 418 ml 570 ml 475 ml Output Urine Total 550 ml 500 ml 425 ml # Voids 2 3 # Bowel Movements 0 Result Diagram: 12/12/16 0415 12/14/16 0325 Other Results Laboratory Tests Test 12/14/16 03:25 Prothrombin Time 11.7 SEC (9.8-11.6) Prothromb Time International 1.1 RATIO Ratio Imaging Last 24 hours Impressions Knee X-Ray 12/10/16 1542 Signed Impressions: Service Date/Time: Saturday, December 10, 2016 16:55 - CONCLUSION: 1. Left knee arthroplasty in good position. 2. Old plate across a healed tibial fracture. Nate Miles MD Objective Remarks seen by Dr. Josue Cho patient resting in bed with bipap left knee dressing dry and intact N/V intact Neg bharti's;no calf tenderness Assessment & Plan Assessment and Plan patient under care of Dr. 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
[2016-12-14] MEDS ORDERED: DO NOT ADM ANY ANTICOAGULANT DRUGS OTHER PRN (07:30)
[2016-12-14] MEDS: RESP: ALBUTEROL 2.5 MG/IPRATROPIUM 0.5 MG NEB (SCH) NEB ×3 (08:00→20:59)
[2016-12-14] MEDS: DOCUSATE SODIUM 100 MG CAP PO SCH ×2 (08:09→21:22)
[2016-12-14] MEDS: LACTULOSE SYRUP 20 GM/30 ML CUP PO SCH (08:09)
[2016-12-14] MEDS: SODIUM CHLORIDE 0.9% FLUSH 5 ML FLUSH IVF SCH ×2 (08:10→21:00)
--- NOTE | 2016-12-14 14:12 | HHI.CCPN ---
Subjective Remarks/Hospital Course Hypoxemic respiratory failure requiring BiPAP last night. By ABG patient is chronic hypoventilator with CO2 retention. Still need to rule out pulmonary embolus with CTA. Will try to arrange pulmonary service followup after discharge; for home CPAP. 12/13: Appreciate input from Dr. Gordillo. His chronic pulmonary issues will take some more in-hospital fine tuning. Orthopedic Service can feel free to transfer this patient to the [facility] - we'd be happy to manage his medical care. INR has not increased yet - should we start lovenox until the INR is therapeutic? 12/14: Requiring BiPAP at night for safe sleep. Objective Vital Signs Date Time Temp Pulse Resp B/P Pulse Ox O2 Delivery O2 Flow Rate FiO2 12/14/16 10:00 96 12/14/16 08:54 93 Nasal Cannula 6.00 50 12/14/16 08:00 98.7 22 131/78 Intake and Output 12/13/16 12/13/16 12/14/16 08:00 16:00 00:00 Intake Total 462 ml 1278 ml 810 ml Output Total 550 ml 500 ml Balance 462 ml 728 ml 310 ml Result Diagram: 12/12/16 0415 12/14/16 0325 Imaging Last 24 hours Impressions Chest X-Ray 12/11/16 0000 Signed Impressions: Service Date/Time: Sunday, December 11, 2016 16:46 - CONCLUSION: Limited film with no comparisons. Good quality PA and lateral views would be suggested for followup. See above. Farhad Natarajan MD Objective Remarks GENERAL: Morbidly obese gentleman. SKIN: Warm and dry. HEAD: Normocephalic. NECK: Supple, trachea midline.Airway widely patent. CARDIOVASCULAR: Regular rate and rhythm without murmurs, gallops, or rubs. No JVD. RESPIRATORY: Breath sounds equal bilaterally. No wheezes or crackles. GASTROINTESTINAL: Abdomen soft, non-tender, nondistended. BS active. MUSCULOSKELETAL: No cyanosis, or edema. Well perfused. EXTREMITIES: Well-healing after knee replacement on the left. NEURO: O X 3, alert, conversant. Moves 4 limbs spontaneously. A/P Assessment and Plan Respiratory failure - Untreated DEMETRICE/OHS - Continue BiPAP - Possible aspiration pneumonia/pneumonitis - Empirically Zosyn - CTA chest -> no PE but considerable basilar consolidation, doubt pneumonitis but agree with antibiotics because of his underlying lung pathology. Osteoarthritis of the left knee - Status post total knee arthroplasty - Management per orthopedic surgeon - Lovenox until INR rises? Dyslipidemia - By mouth statin DVT GI prophylaxis - Coumadin/regular diet Overall impression: He has developed hypercapneic respiratory failure requiring NIV hs. He has improved. CTA ruled out pulmonary embolism. His OHS will be a life-long problem I predict. He will require Pulmonology outpatient followup; arrangements being made by Dr. Gordillo. Willi Jauregui MD Dec 14, 2016 14:12
[2016-12-14] MEDS: [UNRECOGNIZED DRUG - OTHER] PO SCH ×2 (14:37→21:21)
[2016-12-14] MEDS: TAPENTADOL PO SCH ×2 (14:37→21:21)
[2016-12-14] MEDS ORDERED: WARFARIN SOD 10 MG TAB PO ONE (16:00)
[2016-12-14] MEDS ORDERED: WARFARIN SOD 5 MG TAB PO SCH (16:00)
--- NOTE | 2016-12-14 19:24 | HHI.PR ---
Subjective Remarks 71 YOWM with Hypercapnoic RF, s/p Knee surgery On NC, tolerates well Alert, awake Feels better Objective Vital Signs Vital Signs Date Time Temp Pulse Resp B/P Pulse Ox O2 Delivery O2 Flow Rate FiO2 12/14/16 18:00 85 12/14/16 16:00 98.6 80 25 128/66 96 12/14/16 16:00 80 12/14/16 14:00 85 12/14/16 12:00 98.6 102 24 141/79 89 12/14/16 12:00 102 12/14/16 10:00 96 12/14/16 08:54 93 Nasal Cannula 6.00 50 12/14/16 08:00 98.7 90 22 131/78 98 12/14/16 08:00 98 Bi-Pap 50 12/14/16 08:00 101 12/14/16 06:00 80 12/14/16 04:17 95 40 12/14/16 04:00 93 12/14/16 04:00 98.9 93 30 130/73 93 12/14/16 02:00 95 12/14/16 00:00 98.7 96 17 157/72 93 12/14/16 00:00 96 12/13/16 22:13 94 40 12/13/16 22:00 90 12/13/16 20:08 98 40 12/13/16 20:00 96 Bi-Pap 40 12/13/16 20:00 108 12/13/16 20:00 98.7 108 35 134/81 96 12/13/16 19:56 92 Venturi Mask 6.00 50 I/O 12/13/16 12/13/16 12/13/16 12/14/16 12/14/16 12/14/16 07:00 15:00 23:00 07:00 15:00 23:00 Intake Total 462 ml 1278 ml 810 ml 715 ml 909 ml Output Total 550 ml 500 ml 425 ml 700 ml Balance 462 ml 728 ml 310 ml 290 ml 209 ml Intake Oral 860 ml 240 ml 240 ml 440 ml IV Total 462 ml 418 ml 570 ml 475 ml 469 ml Output Urine Total 550 ml 500 ml 425 ml 700 ml # Voids 2 3 # Bowel Movements 0 1 Result Diagram: 12/12/16 0415 12/14/16 0325 Objective Remarks GENERAL: WBWN WM, SKIN: Warm and dry. HEAD: Normocephalic. EYES: No scleral icterus. No injection or drainage. NECK: Supple, trachea midline. No JVD or lymphadenopathy. CARDIOVASCULAR: Regular rate and rhythm without murmurs, gallops, or rubs. RESPIRATORY: Breath sounds equal bilaterally. No accessory muscle use. GASTROINTESTINAL: Abdomen soft, non-tender, nondistended. MUSCULOSKELETAL: No cyanosis, or edema. BACK: Nontender without obvious deformity. No CVA tenderness. A/P Assessment and Plan Hypercapnoic RF Obesity hyponetilation or DEMETRICE HTN S/P Knee surgery Lung Infilterate PLAN: BIPAP at night Keep sat 88-92 % Cont Abx Will need sleep study as out pt Lawrence Gordillo MD Dec 14, 2016 19:24
[2016-12-14] MEDS: PRAVASTATIN SOD 20 MG TAB PO SCH (21:22)
[2016-12-15] VITALS (15 sets, daily range): BP systolic 115–151; BP diastolic 63–97; PULSE 83–100; RESP 22–28; TEMP 97.2–98.7; O2SAT 92–95
[2016-12-15] MEDS: PIPERACIL-TAZO 4.5 GM PREMIX 100 ML IV SCH ×4 (01:40→20:50)
[2016-12-15] MEDS: TAPENTADOL PO SCH ×2 (08:09→21:12)
[2016-12-15] MEDS: DOCUSATE SODIUM 100 MG CAP PO SCH ×2 (08:09→20:50)
[2016-12-15] MEDS: [UNRECOGNIZED DRUG - OTHER] PO SCH ×2 (08:09→21:12)
[2016-12-15] MEDS: SODIUM CHLORIDE 0.9% FLUSH 5 ML FLUSH IVF SCH ×2 (08:10→20:50)
[2016-12-15] MEDS: LACTULOSE SYRUP 20 GM/30 ML CUP PO SCH (08:10)
[2016-12-15] MEDS: RESP: ALBUTEROL 2.5 MG/IPRATROPIUM 0.5 MG NEB (SCH) NEB ×3 (08:27→19:43)
[2016-12-15 09:42] LABS: INTERNATIONAL NORMALIZED RATIO 1.3 RATIO; PROTHROMBIN TIME - PATIENT 14.7 SEC (9.8-11.6)
--- NOTE | 2016-12-15 10:05 | HHI.CCPN ---
Subjective Remarks/Hospital Course Hypoxemic respiratory failure requiring BiPAP last night. By ABG patient is chronic hypoventilator with CO2 retention. Still need to rule out pulmonary embolus with CTA. Will try to arrange pulmonary service followup after discharge; for home CPAP. 12/13: Appreciate input from Dr. Gordillo. His chronic pulmonary issues will take some more in-hospital fine tuning. Orthopedic Service can feel free to transfer this patient to the [facility] - we'd be happy to manage his medical care. INR has not increased yet - should we start lovenox until the INR is therapeutic? 12/14: Requiring BiPAP at night for safe sleep. 12/15: Breathing better this morning but clearly mildly labored. 12/16: Breathing with more comfort. Objective Vital Signs Date Time Temp Pulse Resp B/P Pulse Ox O2 Delivery O2 Flow Rate FiO2 12/15/16 08:27 95 Nasal Cannula 3.00 12/15/16 08:00 98.3 94 28 151/87 12/14/16 23:55 40 Intake and Output 12/14/16 12/14/16 12/15/16 08:00 16:00 00:00 Intake Total 715 ml 909 ml 670 ml Output Total 425 ml 700 ml 650 ml Balance 290 ml 209 ml 20 ml Result Diagram: 12/12/16 0415 12/14/16 0325 Imaging Last 24 hours Impressions Chest X-Ray 12/11/16 0000 Signed Impressions: Service Date/Time: Sunday, December 11, 2016 16:46 - CONCLUSION: Limited film with no comparisons. Good quality PA and lateral views would be suggested for followup. See above. Farhad Natarajan MD Objective Remarks GENERAL: Morbidly obese gentleman. SKIN: Warm and dry. HEAD: Normocephalic. NECK: Supple, trachea midline. Airway widely patent. No stridor or obstruction. CARDIOVASCULAR: Regular rate and rhythm without murmurs, gallops, or rubs. No JVD. RESPIRATORY: Breath sounds equal bilaterally. No wheezes or crackles. GASTROINTESTINAL: Abdomen soft, non-tender, moderately distended. BS active. MUSCULOSKELETAL: No cyanosis, or edema. Well perfused. EXTREMITIES: Well-healing after knee replacement on the left. NEURO: O X 3, alert, conversant. Moves 4 limbs spontaneously. A/P Assessment and Plan Respiratory failure - Untreated DEMETRICE/OHS - Continue BiPAP - Possible aspiration pneumonia/pneumonitis - Empirically Zosyn - CTA chest -> no PE but considerable basilar consolidation, doubt pneumonitis but agree with antibiotics because of his underlying lung pathology. Osteoarthritis of the left knee - Status post total knee arthroplasty - Management per orthopedic surgeon - Lovenox until INR rises? Dyslipidemia - By mouth statin DVT GI prophylaxis - Coumadin/regular diet Overall impression: He developed hypercapneic respiratory failure requiring NIV hs, improved. CTA ruled out pulmonary embolism. His OHS will be a life-long problem I predict. Pulmonology outpatient followup; arrangements being made by Dr. Gordillo. Slow progress related to challenging body habitus. Willi Jauregui MD Dec 15, 2016 10:05
[2016-12-15] MEDS: WARFARIN SOD 5 MG TAB PO SCH (15:55)
--- NOTE | 2016-12-15 20:23 | HHI.PR ---
Subjective Remarks 71 YOWM with Hypercapnoic RF, s/p Knee surgery On NC, tolerates well Alert, awake Feels better Up in Chair, denies sob " Do I have to use CPAP' Objective Vital Signs Vital Signs Date Time Temp Pulse Resp B/P Pulse Ox O2 Delivery O2 Flow Rate FiO2 12/15/16 19:43 95 Nasal Cannula 3.00 12/15/16 18:00 94 12/15/16 16:00 98.7 95 26 141/97 92 12/15/16 16:00 95 12/15/16 14:00 100 12/15/16 12:00 95 12/15/16 12:00 98.2 83 22 115/68 93 12/15/16 10:00 92 12/15/16 08:27 95 Nasal Cannula 3.00 12/15/16 08:00 98.3 94 28 151/87 92 12/15/16 08:00 92 12/15/16 07:00 94 Nasal Cannula 5.00 Bi-Pap Humidified 12/15/16 06:00 93 12/15/16 04:00 87 12/15/16 04:00 97.7 93 28 134/80 93 12/15/16 02:00 95 12/15/16 01:18 Nasal Cannula 5.00 Bi-Pap Humidified 12/15/16 01:15 94 Nasal Cannula 5.00 12/15/16 00:00 97.2 83 24 137/63 95 12/15/16 00:00 99 12/14/16 23:55 Bi-Pap 40 12/14/16 23:55 99 40 12/14/16 22:44 96 4.00 12/14/16 22:00 93 I/O 12/14/16 12/14/16 12/14/16 12/15/16 12/15/16 12/15/16 07:00 15:00 23:00 07:00 15:00 23:00 Intake Total 715 ml 909 ml 670 ml 290 ml 720 ml Output Total 425 ml 700 ml 650 ml 900 ml 800 ml Balance 290 ml 209 ml 20 ml -610 ml -80 ml Intake Oral 240 ml 440 ml 620 ml 240 ml 620 ml IV Total 475 ml 469 ml 50 ml 50 ml 100 ml Output Urine Total 425 ml 700 ml 650 ml 900 ml 800 ml # Bowel Movements 1 0 0 1 Result Diagram: 12/12/16 0415 12/14/16 0325 Objective Remarks GENERAL: WBWN WM, SKIN: Warm and dry. HEAD: Normocephalic. EYES: No scleral icterus. No injection or drainage. NECK: Supple, trachea midline. No JVD or lymphadenopathy. CARDIOVASCULAR: Regular rate and rhythm without murmurs, gallops, or rubs. RESPIRATORY: Breath sounds equal bilaterally. No accessory muscle use. GASTROINTESTINAL: Abdomen soft, non-tender, nondistended. MUSCULOSKELETAL: No cyanosis, or edema. BACK: Nontender without obvious deformity. No CVA tenderness. A/P Assessment and Plan Hypercapnoic RF Obesity hyponetilation or DEMETRICE HTN S/P Knee surgery Lung Infilterate PLAN: BIPAP at night PRN sob or lethargy Keep sat 88-92 % Cont Abx Will need sleep study as out pt Lawrence Gordillo MD Dec 15, 2016 20:23
[2016-12-15] MEDS: PRAVASTATIN SOD 20 MG TAB PO SCH (20:49)
[2016-12-16] VITALS (11 sets, daily range): BP systolic 131–190; BP diastolic 62–99; PULSE 80–111; RESP 18–30; TEMP 96.2–98.8; O2SAT 90–96
[2016-12-16] MEDS: PIPERACIL-TAZO 4.5 GM PREMIX 100 ML IV SCH ×4 (02:14→20:48)
[2016-12-16 05:12] LABS: BICARBONATE 27.2 MEQ/L (21.0-32.0); POTASSIUM 3.5 MEQ/L (3.5-5.1)
[2016-12-16 06:00] LABS: INTERNATIONAL NORMALIZED RATIO 1.7 RATIO; PROTHROMBIN TIME - PATIENT 18.9 SEC (9.8-11.6)
[2016-12-16] MEDS: TAPENTADOL PO SCH ×2 (08:28→21:00)
[2016-12-16] MEDS: [UNRECOGNIZED DRUG - OTHER] PO SCH ×2 (08:28→21:00)
[2016-12-16] MEDS: SODIUM CHLORIDE 0.9% FLUSH 5 ML FLUSH IVF SCH ×2 (08:28→21:00)
[2016-12-16] MEDS: DOCUSATE SODIUM 100 MG CAP PO SCH ×2 (08:28→21:00)
[2016-12-16] MEDS: LACTULOSE SYRUP 20 GM/30 ML CUP PO SCH (08:29)
--- NOTE | 2016-12-16 14:17 | PD.TRANSFR ---
Transfer Summary Admission Date Dec 10, 2016 at 10:12 Transfer Date: Dec 17, 2016 Admitting Diagnosis Diagnoses: (1) Osteoarthritis of left knee Diagnosis: Principal (2) Hyperlipemia Significant Findings s/p left TKA complicated postop by chronic obesity hypoventilation syndrome. He does not like to wear CPAP machine but hypoventilates and retains CO2. Dr. Gordillo is following. He requests in-home rehab for his knee. Objective Vital Signs Date Time Temp Pulse Resp B/P Pulse Ox O2 Delivery O2 Flow Rate FiO2 12/16/16 12:00 85 12/16/16 08:00 94 Nasal Cannula 3.00 12/16/16 08:00 98.8 30 131/62 12/14/16 23:55 40 Intake and Output 12/15/16 12/15/16 12/16/16 08:00 16:00 00:00 Intake Total 290 ml 720 ml 720 ml Output Total 900 ml 800 ml 900 ml Balance -610 ml -80 ml -180 ml Result Diagram: 12/12/16 0415 12/16/16 0407 Imaging Last 24 hours Impressions Chest X-Ray 12/11/16 0000 Signed Impressions: Service Date/Time: Sunday, December 11, 2016 16:46 - CONCLUSION: Limited film with no comparisons. Good quality PA and lateral views would be suggested for followup. See above. Farhad Natarajan MD Objective Remarks GENERAL: Morbidly obese gentleman. SKIN: Warm and dry. HEAD: Normocephalic. NECK: Supple, trachea midline. Airway widely patent. No stridor or obstruction. CARDIOVASCULAR: Regular rate and rhythm without murmurs, gallops, or rubs. No JVD. RESPIRATORY: Breath sounds equal bilaterally. No wheezes or crackles. GASTROINTESTINAL: Abdomen soft, non-tender, moderately distended. BS active. MUSCULOSKELETAL: No cyanosis, or edema. Well perfused. EXTREMITIES: Well-healing after knee replacement on the left. NEURO: O X 3, alert, conversant. Moves 4 limbs spontaneously. A/P Assessment and Plan Respiratory failure - Untreated DEMETRICE/OHS - Continue BiPAP - Possible aspiration pneumonia/pneumonitis - Empirically Zosyn - CTA chest -> no PE but considerable basilar consolidation, doubt pneumonitis but agree with antibiotics because of his underlying lung pathology. Osteoarthritis of the left knee - Status post total knee arthroplasty - Management per orthopedic surgeon - Lovenox until INR rises? Dyslipidemia - By mouth statin DVT GI prophylaxis - Coumadin/regular diet Overall impression: He developed hypercapneic respiratory failure requiring NIV hs, improved. CTA ruled out pulmonary embolism. His OHS will be a life-long problem I predict. Pulmonology outpatient followup; arrangements being made by Dr. Gordillo. Slow progress related to challenging body habitus. Willi Jauregui MD Dec 16, 2016 14:17
[2016-12-16] MEDS: WARFARIN SOD 5 MG TAB PO SCH (15:11)
--- NOTE | 2016-12-16 19:04 | HHI.PR ---
Subjective Remarks 71 YOWM with Hypercapnoic RF, s/p Knee surgery On NC, tolerates well Alert, awake Feels better Up in Chair, denies sob did well without CPAP Objective Vital Signs Vital Signs Date Time Temp Pulse Resp B/P Pulse Ox O2 Delivery O2 Flow Rate FiO2 12/16/16 18:23 Nasal Cannula 2.00 12/16/16 16:00 96.3 87 18 157/92 96 12/16/16 14:00 107 12/16/16 12:00 98.4 80 26 151/90 93 12/16/16 12:00 85 12/16/16 10:00 108 12/16/16 08:00 102 12/16/16 08:00 94 Nasal Cannula 3.00 12/16/16 08:00 94 Nasal Cannula 3.00 12/16/16 08:00 98.8 102 30 131/62 94 12/16/16 06:00 83 12/16/16 04:00 98.0 90 24 150/79 94 12/16/16 04:00 103 12/16/16 02:00 95 12/16/16 00:00 98.1 92 23 152/73 90 12/16/16 00:00 95 12/15/16 22:00 92 12/15/16 20:00 97 12/15/16 20:00 Nasal Cannula 3.00 Bi-Pap 12/15/16 20:00 97.7 100 26 138/75 93 12/15/16 19:43 95 Nasal Cannula 3.00 I/O 12/15/16 12/15/16 12/15/16 12/16/16 12/16/16 12/16/16 07:00 15:00 23:00 07:00 15:00 23:00 Intake Total 290 ml 720 ml 720 ml 340 ml Output Total 900 ml 800 ml 900 ml 1000 ml 600 ml Balance -610 ml -80 ml -180 ml -660 ml -600 ml Intake Oral 240 ml 620 ml 620 ml 240 ml IV Total 50 ml 100 ml 100 ml 100 ml Output Urine Total 900 ml 800 ml 900 ml 1000 ml 600 ml # Bowel Movements 0 1 1 0 1 Result Diagram: 12/12/16 0415 12/16/16 0407 Objective Remarks GENERAL: WBWN WM, SKIN: Warm and dry. HEAD: Normocephalic. EYES: No scleral icterus. No injection or drainage. NECK: Supple, trachea midline. No JVD or lymphadenopathy. CARDIOVASCULAR: Regular rate and rhythm without murmurs, gallops, or rubs. RESPIRATORY: Breath sounds equal bilaterally. No accessory muscle use. GASTROINTESTINAL: Abdomen soft, non-tender, nondistended. MUSCULOSKELETAL: No cyanosis, or edema. BACK: Nontender without obvious deformity. No CVA tenderness. A/P Assessment and Plan Hypercapnoic RF Obesity hyponetilation or DEMETRICE HTN S/P Knee surgery Lung Infilterate PLAN: BIPAP at night PRN sob or lethargy Keep sat 88-92 % Cont Abx Will need sleep study as out pt Stable pulLawrence Dill MD Dec 16, 2016 19:04
[2016-12-16] MEDS: PRAVASTATIN SOD 20 MG TAB PO SCH (21:49)
[2016-12-17 00:10] VITALS: BP 165/89; PULSE 96; RESP 24; TEMP 97.1; O2SAT 94
[2016-12-17] MEDS: PIPERACIL-TAZO 4.5 GM PREMIX 100 ML IV SCH ×3 (02:22→12:13)
[2016-12-17 03:40] VITALS: BP 144/88; PULSE 83; RESP 20; TEMP 96.3; O2SAT 97
[2016-12-17 06:40] LABS: INTERNATIONAL NORMALIZED RATIO 2.1 RATIO; PROTHROMBIN TIME - PATIENT 23.4 SEC (9.8-11.6)
[2016-12-17 06:50] LABS: BICARBONATE 30.5 MEQ/L (21.0-32.0); POTASSIUM 3.5 MEQ/L (3.5-5.1)
--- NOTE | 2016-12-17 07:12 | PD.ORT.PN ---
Subjective Subjective Remarks patient was transferred back to orthopedic floor over the weekend doing much better, ready to be transferred home today with [facility] no chest pain, no SOB, mild knee pain Objective Vitals Vital Signs Date Time Temp Pulse Resp B/P Pulse Ox O2 Delivery O2 Flow Rate FiO2 12/17/16 03:40 96.3 83 20 144/88 97 12/17/16 00:10 97.1 96 24 165/89 94 12/16/16 20:59 95 Nasal Cannula 3.00 12/16/16 20:50 96.2 111 22 190/99 94 12/16/16 18:23 Nasal Cannula 2.00 12/16/16 16:00 96.3 87 18 157/92 96 12/16/16 14:00 107 12/16/16 12:00 98.4 80 26 151/90 93 12/16/16 12:00 85 12/16/16 10:00 108 12/16/16 08:00 102 12/16/16 08:00 94 Nasal Cannula 3.00 12/16/16 08:00 94 Nasal Cannula 3.00 12/16/16 08:00 98.8 102 30 131/62 94 I/O 12/16/16 12/16/16 12/16/16 12/17/16 12/17/16 12/17/16 07:00 15:00 23:00 07:00 15:00 23:00 Intake Total 340 ml 480 ml 480 ml Output Total 1000 ml 600 ml 700 ml 700 ml Balance -660 ml -600 ml -220 ml -220 ml Intake Oral 240 ml 480 ml 480 ml IV Total 100 ml Output Urine Total 1000 ml 600 ml 700 ml 700 ml # Bowel Movements 0 1 0 1 Result Diagram: 12/17/16 0531 Other Results Laboratory Tests Test 12/17/16 05:31 Prothrombin Time 23.4 SEC (9.8-11.6) Prothromb Time International 2.1 RATIO Ratio Imaging Last 24 hours Impressions Knee X-Ray 12/10/16 1542 Signed Impressions: Service Date/Time: Saturday, December 10, 2016 16:55 - CONCLUSION: 1. Left knee arthroplasty in good position. 2. Old plate across a healed tibial fracture. Nate Miles MD Objective Remarks seen by Dr. Josue Cho left knee dressing dry and intact N/V intact Neg bharti's;no calf tenderness Assessment & Plan Assessment and Plan POD # 7 s/p L TKA coumadin for dvt prop [facility], no script written today continue pulm care PT-WBAT and CPM discharge home today with [facility], orthopedically stable will need to follow up as an outpatient for sleep study and further evaluation of probably sleep apnea Lupe Galdamez Dec 17, 2016 07:12
[2016-12-17 08:00] VITALS: BP 147/97; PULSE 100; RESP 22; TEMP 96.3; O2SAT 95
[2016-12-17] MEDS: [UNRECOGNIZED DRUG - OTHER] PO SCH (09:00)
[2016-12-17] MEDS: DOCUSATE SODIUM 100 MG CAP PO SCH (09:00)
[2016-12-17] MEDS: SODIUM CHLORIDE 0.9% FLUSH 5 ML FLUSH IVF SCH (09:00)
[2016-12-17] MEDS: TAPENTADOL PO SCH (09:00)
[2016-12-17] MEDS: LACTULOSE SYRUP 20 GM/30 ML CUP PO SCH (09:00)
[2016-12-17 10:09] VITALS: O2SAT 98
[2016-12-17] MEDS ORDERED: WARF-18 PO (11:37)
[2016-12-17] MEDS ORDERED: AUGM875T PO (11:40)
--- NOTE | 2016-12-17 11:41 | HHI.DS ---
Discharge Summary Admission Date Dec 10, 2016 at 10:12 am Discharge Date: Dec 17, 2016 Admitting Diagnosis Left knee osteoarthritis. (1) Osteoarthritis of left knee ICD Code: M17.12 Diagnosis: Principal (2) Hyperlipemia ICD Code: E78.5 (3) Obesity hypoventilation syndrome ICD Code: E66.2 Diagnosis: Principal (4) Aspiration pneumonia ICD Code: J69.0 Diagnosis: Principal Procedures 12/10/2016 Left total knee arthroplasty - cemented [employer]. 12/13/2016 Echo - Left ventricle: The cavity size was normal. Wall thickness was normal. Systolic function was probably normal. The estimated ejection fraction was 50%. Wall motion was normal; there were no regional wall motion abnormalities. - Aortic valve: Valve area: 2.09cm^2 (Vmax). - Tricuspid valve: Mild regurgitation. Brief History - From Admission This is a 71 year old male patient with past medical history which includes hyperlipidemia and osteoarthritis left knee. Patient is status post left total knee arthroplasty today 12/10/[address] Cho. Patient is currently in hospital bed recovering postoperatively. Reports pain 10/10 L knee area, per RN has just received pain medication. Offers no other complaints at this time. Has intact sensation left lower extremity and able to wiggle toes. He denies chest pain shortness of breath nausea vomiting diarrhea constipation fevers or chills. CBC/BMP: 12/17/16 0531 Significant Findings Laboratory Tests Test 12/15/16 12/16/16 12/17/16 09:20 04:07 05:31 Prothrombin Time 14.7 SEC 18.9 SEC 23.4 SEC (9.8-11.6) (9.8-11.6) (9.8-11.6) Random Glucose 109 MG/DL (74-106) Imaging Last Impressions Chest X-Ray 12/12/16 0600 Signed Impressions: Service Date/Time: Monday, December 12, 2016 05:03 - CONCLUSION: Right perihilar infiltrate. Capo Marie Jr., MD CT Angiography 12/11/16 0000 Signed Impressions: Service Date/Time: Monday, December 12, 2016 11:56 - CONCLUSION: 1. No pulmonary embolus identified. 2. Fairly diffuse perihilar and lower lobe infiltrates concerning for a pneumonia. 3. Mild cardiomegaly. Nate Miles MD Knee X-Ray 12/10/16 1542 Signed Impressions: Service Date/Time: Saturday, December 10, 2016 16:55 - CONCLUSION: 1. Left knee arthroplasty in good position. 2. Old plate across a healed tibial fracture. Nate Miles MD PE at Discharge GENERAL: This is an obese, well-developed patient, in no apparent distress. SKIN: No rashes, ecchymoses or lesions. Cool and dry. surgical dressing LLE dry in intact CARDIOVASCULAR: Regular rate and rhythm without murmurs, gallops, or rubs. RESPIRATORY: Clear to auscultation. Breath sounds equal bilaterally. No wheezes , rales, or rhonchi. GASTROINTESTINAL: Abdomen soft, non-tender, nondistended. normoactive bowel sounds all four quadrants MUSCULOSKELETAL: LLE post op dressing dry and intact NEUROLOGICAL: Awake and alert. no focal deficits. NC in place. Looks a bit afraid but answers appropriately Pt update on day of discharge Mr. Astudillo is doing well. No acute concerns. Eager to go home. Denies any fever, chills. Hospital Course Mr. Astudillo was admitted for left total knee replacement. Post surgery, he went into respiratory failure both hypoxemic and hypercarbic requiring BiPAP. Post procedure, patient had an episode of vomiting and CXR was suggestive of right sided aspiration pneumonia. Patient was started on Zosyn and monitored in the ICU. Pulmonology followed this patient. There was also suspicion of obstructive sleep apnea as well as obesity hypoventilation syndrome. Patient improved well clinically. He was transferred to the medical floor. After orthopedic clearance , patient was discharged home with home health. Patient received 5 days of Zosyn for probable right sided aspiration pneumonia. We continued 5 more days of Augmentin. Patient was continued on Warfarin 2.5mg Qday by Orthopedic surgery. Pt Condition on Discharge: Good Discharge Disposition: Disch w/ Home Health Serv Discharge Time: > 30 minutes Discharge Instructions DIET: Follow Instructions for: Coumadin (Warfarin) Diet Activities you can perform: Weight Bearing as Telly Follow up Referrals: SNF/[facility]AY/HH with [facility] New Medications: Amoxicillin-Clavulanate (Augmentin) 875-125 mg Tab 875 MG PO BID not for use in CrCl <30 ml/min. Infection #10 Ref 0 TAB Bedside Commode (Bedside Commode) 1 Mis Mis 1 EA .ROUTE DIRECTED #1 EA CPM-Continuous Passive Motion Machine (CPM-Continuous Passive Motion Machine) 1 Ea Device 1 EA .ROUTE DIRECTED #1 Ref 0 EA Walker with Front Wheels (Walker with Front Wheels) 1 Mis Mis 1 EA .ROUTE DIRECTED #1 Ref 0 EA Warfarin (Warfarin) 2.5 Mg Tab 2.5 MG PO DAILY Blood Clot Prevention #21 Ref 0 TAB Continued Medications: Pravastatin (Pravastatin) 20 Mg Tab 20 MG PO HS Cholesterol Management Ref 0 TAB Discontinued Medications: Multiple Vitamins W/ Minerals (Multivitamin Adults) 1 Tab 1 TAB PO DAILY Nutritional Supplement Ref 0 TAB Elena Schmid DO Dec 17, 2016 11:41
[2016-12-17 12:00] VITALS: BP 151/83; PULSE 118; RESP 22; TEMP 97.7; O2SAT 95
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
== END 2016-12-17 13:49 | disposition home health service (06) | DRG 469 ==
LOC: HSDI 12-10 10:12 → N06B 12-10 17:52 → HCIS 12-11 18:08 → N03B 12-11 19:54 → N06B 12-16 16:24
PROVIDERS: ADMIT Orthopaedic Surgery Orthopaedic Surgery of the Spine; ATTEND Hospitalist
PROC: 3E0T3CZ (ICD-10-PCS; 2016-12-10)
PROC: 0SRD0J9 Replacement of Left Knee Joint with Synthetic Substitute, Cemented, Open Approach (ICD-10-PCS; principal; 2016-12-10 12:53)
PROC: 5A09457 Assistance with Respiratory Ventilation, 24-96 Consecutive Hours, Continuous Positive Airway Pressure (ICD-10-PCS; 2016-12-11)
DX: M17.12 Unilateral primary osteoarthritis, left knee (principal); J69.0 Pneumonitis due to inhalation of food and vomit; J96.91 Respiratory failure, unspecified with hypoxia; J96.92 Respiratory failure, unspecified with hypercapnia; E66.2 Morbid (severe) obesity with alveolar hypoventilation; Z68.41 Body mass index [BMI] 40.0-44.9, adult; E87.2 Acidosis; E78.5 Hyperlipidemia, unspecified; M21.162 Varus deformity, not elsewhere classified, left knee; G47.33 Obstructive sleep apnea (adult) (pediatric); Z87.891 Personal history of nicotine dependence
CPT/HCPCS: 36600; 71010; 71020; 71275; 73560; 80048; 80053; 82565; 82805; 83735; 83880; 84100; 85014; 85018; 85025; 85610; 86850; 86900; 86901; 86920; 87641; 93005; 93306; 94002; 94003; 94150; 94640; 94664; C1776; C9290; J0131; J0171; J0690; J0735; J1120; J1580; J1885; J2175; J2250; J2270; J2310; J2405; J2543; J2795; J3010; J3370; J7050; J7120; J7613; L1830; Q9967